=== PATIENT | female | born 1995 | race Two or more races ===

== ENCOUNTER 2024-04-20 12:21 | Inpatient (IN) ==
[2024-04-20] MEDS ORDERED: OXYTOCIN 30 UNITS/NSS 30 UNITS/500 ML BAG IV PRN (13:20)
[2024-04-20] MEDS ORDERED: LIDOCAINE 1% LOCAL 20 ML VIAL INFIL PRN (13:20)
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
[2024-04-20 14:07] LABS: Hematocrit (blood only) 37.1 % (37.0-47.0); Hemoglobin 12.8 g/dl (12.0-16.0); Mean Corpuscular Hemoglobin 31.2 pg (25.0-34.0); Mean Corpuscular Hgb Conc 34.5 g/dL (32.0-36.0); Mean Corpuscular Volume 90.5 fL (80.0-100.0); Mean Platelet Volume 9.8 fL (9.4-12.4); Platelet Count 257 K/uL (130-400); RDW Coefficient of Variation 12.6 % (11.5-14.5); RDW Standard Deviation 40.8 fL (36.4-46.3); White Blood Count 11.44 K/ul (4.8-10.8)
[2024-04-20] MEDS: SODIUM CHLORIDE 0.9% 1,000 ML IV SCH (15:00)
[2024-04-20] MEDS: OXYTOCIN 30 UNITS/NSS 30 UNITS/500 ML BAG IV PRN (15:09)
[2024-04-20] MEDS ORDERED: diphenhydrAMINE 50 MG/ML VIAL IV PRN (19:32)
[2024-04-20] MEDS ORDERED: ROPIVACAINE 0.5% PF 5 MG/ML 20 ML VIAL EPI PRN (19:32)
[2024-04-20] MEDS ORDERED: SODIUM CHLORIDE 0.9% PF INJ 10 ML VIAL EPI PRN (19:32)
[2024-04-20] MEDS ORDERED: fentaNYL citrate PF 100 MCG/2 ML VIAL EPI PRN (19:32)
[2024-04-20] MEDS ORDERED: ePHEDrine sulfate 50 MG/ML AMP IV PRN (19:32)
[2024-04-20] MEDS ORDERED: BUPIVACAINE 0.25% PF 30 ML VIAL EPI PRN (19:32)
[2024-04-20] MEDS ORDERED: LIDOCAINE 2% MPF LOCAL 5 ML VIAL EPI PRN (19:32)
[2024-04-20] MEDS ORDERED: NALOXONE HCL 1 MG in SODIUM CHLORIDE 0.9% 1,000 ML IV PRN (19:32)
[2024-04-20] MEDS ORDERED: NALBUPHINE HCL INJ 10 MG/ML AMP IV PRN (19:32)
[2024-04-20] MEDS ORDERED: NALOXONE HCL 0.4 MG/1 ML VIAL/CARP IV PRN (19:32)
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
[2024-04-20] MEDS: fentaNYL citrate PF 100 MCG/2 ML VIAL ONE (19:51)
[2024-04-20] MEDS: BUPIVACAINE 0.25% PF 30 ML VIAL ONE (19:51)
[2024-04-20] MEDS: LIDOCAINE 2%/EPINEPHRINE 1:200,000 20 ML PF ONE (19:51)
[2024-04-20] MEDS: fentANYL 2 MCG/ML BUPIVacaine 0.125%-NSS 100ML BAG ONE (19:51)
[2024-04-20] MEDS: SODIUM CHLORIDE 0.9% PF INJ 10 ML VIAL ONE (20:50)
[2024-04-20] MEDS: ePHEDrine sulfate 50 MG/ML AMP ONE (20:50)
--- NOTE | 2024-04-20 22:01 | Obstetrical Progress Note ---
Date of Service April 20, 2024 Assessment & Plan Admission and Anticipated Discharge Date Admission Date: April 20, 2024 Subjective Patient is comfortable now Received epidural FHR categ I [place] cxtxs still irregular q 3-8 minutes, Oxytocin is at 18miu/min VE; 3-4 cm/ 50%/ -3 Continue to titrate Oxytocin max 30 Prolonged ROM, will start IV AB until delivery Continue to monitor Results & Data Vital Signs (Past 12 Hours) Vital Signs Temp Pulse Resp BP Pulse Ox 04/20/24 21:55 94 H 98 04/20/24 21:50 100 H 96 04/20/24 21:49 93 H 113/60 04/20/24 21:45 97 H 97 04/20/24 21:40 123 H 98 04/20/24 21:35 98 04/20/24 21:35 111 H 04/20/24 21:35 103 H 104/58 L 04/20/24 21:30 108 H 98 04/20/24 21:25 118 H 96 04/20/24 21:20 136 H 98 04/20/24 21:19 122 H 103/66 04/20/24 21:17 98 H 94 04/20/24 21:15 113 H 96 04/20/24 21:10 116 H 97 04/20/24 21:09 97 H 93 04/20/24 21:06 94 H 112/68 04/20/24 21:05 96 H 95 04/20/24 21:00 126 H 97 04/20/24 20:55 97 H 94 04/20/24 20:50 96 H 94 04/20/24 20:49 118 H 108/69 04/20/24 20:45 115 H 96 04/20/24 20:40 116 H 96 04/20/24 20:36 120 H 112/65 04/20/24 20:35 114 H 96 04/20/24 20:30 126 H 97 04/20/24 20:25 119 H 97 04/20/24 20:20 16 04/20/24 20:20 36.7 C 116 H 16 97 04/20/24 20:15 112 H 98 04/20/24 20:14 121 H 109/66 04/20/24 20:10 112 H 97 04/20/24 20:09 123 H 114/67 04/20/24 20:05 118 H 97 04/20/24 20:03 117 H 112/61 04/20/24 20:00 112 H 116/64 99 04/20/24 19:57 116 H 116/64 04/20/24 19:54 113 H 118/62 98 04/20/24 19:51 114 H 117/56 L 04/20/24 19:50 107 H 118/57 L 04/20/24 19:49 111 H 98 04/20/24 19:44 119 H 98 04/20/24 19:39 128 H 98 04/20/24 19:34 103 H 98 04/20/24 19:29 119 H 98 04/20/24 19:24 117 H 99 04/20/24 19:19 122 H 98 04/20/24 19:00 96 H 118/65 04/20/24 18:59 16 04/20/24 18:59 36.7 C 16 04/20/24 18:13 110 H 16 111/73 04/20/24 17:01 36.6 C 106 H 16 120/65 04/20/24 15:54 127 H 16 121/67 04/20/24 14:55 36.7 C 106 H 18 119/72 04/20/24 14:00 20 04/20/24 14:00 36.8 C 20 04/20/24 12:30 36.6 C 18 04/20/24 12:29 98 H 112/75
[2024-04-20] MEDS: ceFAZolin 2000MG 2,000 MG/15 ML SYR IV SCH (22:29)
[2024-04-21] MEDS: ACETAMINOPHEN 325 MG TAB PO PRN (00:10)
--- NOTE | 2024-04-21 01:57 | Obstetrical Progress Note ---
Date of Service April 21, 2024 Assessment & Plan Admission and Anticipated Discharge Date Admission Date: April 20, 2024 Subjective Patient is reevaluated. She feels well, no complaints Has been resting, sleeping VSS Afebrile FHR categ I Oxytocin has been at 30 miu/min since 01:10, ext helga was showing regular contractions with amplitude over 75 every 2-3 min but now with irrgular pattern VE: 4/ 60-70%/ -2, engaged, IUPC is placed Bed side US: rafy, ASHTYN, EFW 3150 gr Discussed the finding and options for her She states she had long labors with her 2 prior pregnancies when she was induced. Wants to avoid C section if she can Await until an hour at max pitocin with IUPC in then Oxytocin rest for 1 hour and then restart Continue with IV AB Continue to monitor closely Results & Data Vital Signs (Past 12 Hours) Vital Signs Temp Pulse Resp BP Pulse Ox 04/21/24 01:49 118 H 113/73 04/21/24 01:45 92 H 97 04/21/24 01:40 16 04/21/24 01:40 36.9 C 95 H 16 97 04/21/24 01:36 97 H 113/74 04/21/24 01:35 94 H 98 04/21/24 01:30 97 H 96 04/21/24 01:25 93 H 97 04/21/24 01:20 90 97 04/21/24 01:19 100 H 108/67 04/21/24 01:15 104 H 96 04/21/24 01:10 103 H 97 04/21/24 01:06 93 H 106/61 04/21/24 01:05 98 H 96 04/21/24 01:04 98 H 94 04/21/24 01:00 101 H 96 04/21/24 00:55 102 H 96 04/21/24 00:50 102 H 105/61 96 04/21/24 00:45 95 H 96 04/21/24 00:40 112 H 96 04/21/24 00:35 107 H 109/68 97 04/21/24 00:30 104 H 96 04/21/24 00:25 102 H 96 04/21/24 00:20 98 H 96 04/21/24 00:19 102 H 104/63 04/21/24 00:15 98 H 96 01/02/25 00:10 104 H 96 04/21/24 00:05 16 04/21/24 00:05 37.4 C 101 H 16 97 04/21/24 00:04 94 H 111/62 04/21/24 00:00 94 H 97 04/20/24 23:55 99 H 96 04/20/24 23:50 124 H 108/70 97 04/20/24 23:45 95 H 96 04/20/24 23:40 113 H 97 04/20/24 23:35 97 04/20/24 23:35 101 H 04/20/24 23:35 114 H 106/69 04/20/24 23:30 92 H 96 04/20/24 23:25 136 H 98 04/20/24 23:20 96 H 106/60 97 04/20/24 23:15 98 H 96 04/20/24 23:10 106 H 96 04/20/24 23:06 100 H 105/55 L 04/20/24 23:05 100 H 97 04/20/24 23:03 102 H 94 04/20/24 23:00 107 H 96 04/20/24 22:56 98 H 93 04/20/24 22:55 112 H 97 04/20/24 22:50 100 H 97 04/20/24 22:49 94 H 115/56 L 04/20/24 22:45 121 H 98 04/20/24 22:40 112 H 98 04/20/24 22:35 97 04/20/24 22:35 97 H 04/20/24 22:35 96 H 106/64 04/20/24 22:30 108 H 98 04/20/24 22:25 96 H 97 04/20/24 22:20 102 H 97 04/20/24 22:19 96 H 107/58 L 04/20/24 22:15 105 H 96 04/20/24 22:10 104 H 98 04/20/24 22:05 97 04/20/24 22:05 95 H 04/20/24 22:05 98 H 110/60 04/20/24 22:00 97 H 97 04/20/24 21:57 16 04/20/24 21:57 36.7 C 16 04/20/24 21:55 94 H 98 04/20/24 21:50 100 H 96 04/20/24 21:49 93 H 113/60 04/20/24 21:45 97 H 97 04/20/24 21:40 123 H 98 04/20/24 21:35 98 04/20/24 21:35 111 H 04/20/24 21:35 103 H 104/58 L 04/20/24 21:30 108 H 98 04/20/24 21:25 118 H 96 04/20/24 21:20 136 H 98 04/20/24 21:19 122 H 103/66 04/20/24 21:17 98 H 94 04/20/24 21:15 113 H 96 04/20/24 21:10 116 H 97 04/20/24 21:09 97 H 93 04/20/24 21:06 94 H 112/68 04/20/24 21:05 96 H 95 04/20/24 21:00 126 H 97 04/20/24 20:55 97 H 94 04/20/24 20:50 96 H 94 04/20/24 20:49 118 H 108/69 04/20/24 20:45 115 H 96 04/20/24 20:40 116 H 96 04/20/24 20:36 120 H 112/65 04/20/24 20:35 114 H 96 04/20/24 20:30 126 H 97 04/20/24 20:25 119 H 97 04/20/24 20:20 16 04/20/24 20:20 36.7 C 116 H 16 97 04/20/24 20:15 112 H 98 04/20/24 20:14 121 H 109/66 04/20/24 20:10 112 H 97 04/20/24 20:09 123 H 114/67 04/20/24 20:05 118 H 97 04/20/24 20:03 117 H 112/61 04/20/24 20:00 112 H 116/64 99 04/20/24 19:57 116 H 116/64 04/20/24 19:54 113 H 118/62 98 04/20/24 19:51 114 H 117/56 L 04/20/24 19:50 107 H 118/57 L 04/20/24 19:49 111 H 98 04/20/24 19:44 119 H 98 04/20/24 19:39 128 H 98 04/20/24 19:34 103 H 98 04/20/24 19:29 119 H 98 04/20/24 19:24 117 H 99 04/20/24 19:19 122 H 98 04/20/24 19:00 96 H 118/65 04/20/24 18:59 16 04/20/24 18:59 36.7 C 16 04/20/24 18:13 110 H 16 111/73 04/20/24 17:01 36.6 C 106 H 16 120/65 04/20/24 15:54 127 H 16 121/67 04/20/24 14:55 36.7 C 106 H 18 119/72 04/20/24 14:00 20 04/20/24 14:00 36.8 C 20
[2024-04-21] MEDS: CLINDAMYCIN/D5W 900 MG/50 ML BAG IV SCH (03:56)
[2024-04-21] MEDS: fentANYL 2 MCG/ML BUPIVacaine 0.125%-NSS 100ML BAG EPI PRN (04:08)
[2024-04-21] MEDS ORDERED: OXYTOCIN 30 UNITS/NSS 30 UNITS/500 ML BAG IV PRN (07:03)
[2024-04-21] MEDS ORDERED: HYDROCORTISONE ACETATE 25 MG SUPP PR PRN (07:03)
[2024-04-21] MEDS ORDERED: BENZOCAINE 20% SPRY 85 APPLN/85 GM CAN EXT PRN (07:03)
[2024-04-21] MEDS ORDERED: ACETAMINOPHEN 325 MG TAB PO PRN (07:03)
--- NOTE | 2024-04-21 07:09 | Delivery Summary ---
Vaginal Delivery Summary Date of Service April 21, 2024 Vaginal Delivery Summary Patient was found to be fully dilated and desires to push. She pushed with 3 contractions and delivered the head and then shoulders with minimal traction. Nuchal cordx1 reduced. The baby was handed off to the mother. The cord was clampedx2 and cut at 1 minute. The vagina and perineum were checked and found to be intact, no laceration. The placenta was delivered spontaneously as intact and complete. The uterus was explored and found to be empty. QBL was 349 ml. The fundus was firm The baby was a viable female infant, Apgars 7/8, the weight is pending The mother and the baby tolerated the procedure well. No complications happened and I was present during whole procedure.
[2024-04-21] MEDS: BUPIVACAINE 0.25% PF 30 ML VIAL EPI STA (07:15)
[2024-04-21] MEDS: LIDOCAINE 2%/EPINEPHRINE 1:200,000 20 ML PF EPI STA (07:15)
[2024-04-21] MEDS: fentaNYL citrate PF 100 MCG/2 ML VIAL EPI STA (07:15)
[2024-04-21] MEDS: DIPHTHER/TETAN/PERTUS Vaccine (Tdap, Adol/Adult) 0.5mL IM ONE (07:16)
[2024-04-21] MEDS: SODIUM CHLORIDE 0.9% PF INJ 10 ML VIAL EPI STA (07:16)
[2024-04-21] MEDS: MEASLES, MUMPS & RUBELLA VIRUS VACCINE (MMR) 0.5ML VIAL SQ ONE (07:16)
[2024-04-21] MEDS: METHYLERGONOVINE MALEATE 0.2 MG/ML AMP IM ONE (07:20)
[2024-04-21] MEDS: ONDANSETRON INJ 2 MG/ML 2 ML VIAL IV STA (07:42)
--- NOTE | 2024-04-21 07:42 | Anesthesia Procedure Note ---
Date of Service April 21, 2024 Anesthesia Post Epidural Note Vital Signs Vital Signs: Temp Pulse Resp BP Pulse Ox 37.4 C 103 H 20 120/62 100 04/21/24 05:24 04/21/24 07:34 04/21/24 07:19 04/21/24 07:34 04/21/24 06:48 Pain Intensity Right Lower Abdomen: Pain Intensity: 0 Notes Mental Status: alert / awake / arousable and participated in evaluation Nausea / Vomiting: adequately controlled Pain: adequately controlled Airway Patency, RR, SpO2: stable & adequate BP & HR: stable & adequate Hydration State: stable & adequate Neuraxial Anesthesia: was administered and sensory block is resolving Anesthetic Complications: no major complications apparent Epidural: Removed without complications and With tip intact
[2024-04-21] MEDS: PRENATAL VITAMIN 1 TAB PO SCH (08:31)
[2024-04-21] MEDS: FERROUS SULFATE 325 MG TAB PO SCH (08:31)
[2024-04-21] MEDS: DOCUSATE SODIUM 100 MG CAP PO SCH (08:31)
[2024-04-21 15:49] VITALS: RESP 16
[2024-04-21] MEDS: IBUPROFEN 600 MG TAB PO PRN (17:25)
[2024-04-21] MEDS: METHYLERGONOVINE MALEATE 0.2 MG/ML AMP ONE (18:22)
[2024-04-22 07:39] LABS: Hematocrit (blood only) 33.4 % (37.0-47.0); Hemoglobin 11.3 g/dl (12.0-16.0); Mean Corpuscular Hemoglobin 31.7 pg (25.0-34.0); Mean Corpuscular Hgb Conc 33.8 g/dL (32.0-36.0); Mean Corpuscular Volume 93.6 fL (80.0-100.0); Platelet Count 277 K/uL (130-400); RDW Coefficient of Variation 12.9 % (11.5-14.5); RDW Standard Deviation 43.7 fL (36.4-46.3); Red Blood Count 3.57 M/uL (4.20-5.40); White Blood Count 13.78 K/ul (4.8-10.8)
[2024-04-22 07:45] VITALS: BP 119/84; PULSE 82; TEMP 97.9; O2SAT 99
--- NOTE | 2024-04-22 11:36 | Obstetrical Progress Note ---
Date of Service April 22, 2024 Subjective Ambulation: ambulating normally Voiding: no voiding problems Passing Gas:: Yes Diet Tolerance:: regular diet Lochia:: Small Feeding Type:: breast feeding Current Pain Level(1-10): 0 Physical Exam Constitutional WD/WN, vitals as above Gastrointestinal (Abdomen) Inspection/Auscultation: abdomen normal to inspection abdomen soft and non-tender. fundus firm below U. Musculoskeletal Extremities: extremities normal to inspection Skin no rashes, warm and dry Neurologic patellar DTR's 2+ bilat, sensation intact Psychiatric A+Ox3, euthymic affect Results & Data Vital Signs (Past 12 Hours) Vital Signs Temp Pulse Resp BP Pulse Ox O2 Del Method 04/22/24 07:29 36.6 C 82 16 119/84 99 Room Air 04/22/24 02:57 36.5 C 83 16 96/64 L 97 Room Air Laboratory Results Laboratory Results - last 72 hr 04/20/24 04/20/24 04/22/24 13:50 14:05 06:57 WBC 11.44 H 13.78 H RBC 4.10 L 3.57 L Hgb 12.8 11.3 L Hct 37.1 33.4 L MCV 90.5 93.6 MCH 31.2 31.7 MCHC 34.5 33.8 RDW Std Deviation 40.8 43.7 RDW Coeff of [place] 12.6 12.9 Plt Count 257 277 MPV 9.8 10.0 Amniotic Protein POS Treponema pallidum Ab Negative
[2024-04-22] MEDS ORDERED: bisacodyL 5 MG TABEC PO SCH (20:00)
[2024-04-23] MEDS ORDERED: bisacodyL 10 MG SUPP PR PRN (07:00)
== END 2024-04-22 14:15 | disposition home or self-care (01) | DRG 807 ==
LOC: 4S1 12:21 → OPB 12:21 → 4S1 12:24 → 4E2 04-21 09:40